=== PATIENT | male | born 1940 | race Caucasian/White ===

== ENCOUNTER 2016-10-05 09:15 | Emergency (ER) | payer MEDICARE, BC ==
[2016-10-05] MEDS ORDERED: ASPIRIN 81 MG CHEW TAB ONE (09:28)
== END 2016-10-05 13:57 | disposition home or self-care (01) ==
LOC: ER 09:15
DX: R00.2 Palpitations (principal)
CPT/HCPCS: 36415; 71010; 80053; 82550; 83735; 84484; 85025; 85379; 85610; 85730; 93005